=== PATIENT | male | born 1960 | race Caucasian/White ===

== ENCOUNTER 2019-12-30 10:32 | Day surgery (SDC) | payer BC, SELFPAY ==
[2019-12-24 14:24] VITALS: BMI 30.9
--- NOTE | 2019-12-26 15:56 | P.CONAN_ITS ---
Documented by User: Enedina Larsonney 12/26/19 15:57 HPI - Anesthesia Eval Consult details Narrative: 59yo M for Colonoscopy [facility] Past Medical History Medical History Allergic rhinitis Elevated cholesterol HTN (hypertension) Surgical History Surgical History Hx of arthroscopy of right knee Hx of colonoscopy Social History Social History Alcohol intake: current Alcohol intake frequency: a few times a week Alcohol type: beer Smoking Status: Never smoker Use of substances other than those prescribed or required for medical reasons: No Advance Directives: No Advance Directives Information Provided: No Advance Directives on File: No Meds Allergies Allergy/AdvReac Type Severity Reaction Status Date / Time No Known Allergies Allergy Verified 12/24/19 14:24 Home Medications Medication Instructions Recorded Confirmed Type amlodipine 10 mg PO DAILY 12/24/19 12/24/19 History atorvastatin 10 mg PO DAILY 12/24/19 12/24/19 History Exam Exam Date and Time: December 26, 2019 1556 Height,Weight and Vital Signs: Height 6 ft 1 in Weight 106.594 kg Assessment and Plan Assessment Anesthesia Assessment: Chart Reviewed Documented by User: Steve Castellanos MD 12/30/19 11:00 [facility] Past Medical History Medical History Allergic rhinitis Elevated cholesterol HTN (hypertension) Surgical History Surgical History Hx of arthroscopy of right knee Hx of colonoscopy Social History Social History Alcohol intake: current Alcohol intake frequency: a few times a week Alcohol type: beer Smoking Status: Never smoker Use of substances other than those prescribed or required for medical reasons: No Advance Directives: No Advance Directives Information Provided: No Advance Directives on File: No Meds Allergies Allergy/AdvReac Type Severity Reaction Status Date / Time No Known Allergies Allergy Verified 12/24/19 14:24 Home Medications Medication Instructions Recorded Confirmed Type amlodipine 10 mg PO DAILY 12/24/19 12/24/19 History atorvastatin 10 mg PO DAILY 12/24/19 12/24/19 History Exam Airway Mallampati Class: II TM Dist: >3cm Neck ROM: Full Loose/Missing/Broken Teeth: No Heart: rrr Lungs: nl Other: ao Assessment and Plan Assessment Anesthesia Assessment: Anesthesia Plan Discussed, PAT Visit and Chart Reviewed Final Anesthetic Review NPO: Yes ASA Class: II Final Preanesthetic Review: No Changes in Pt Med Stat, Meds/Allgs Chart Reviewed, Consent Obtained/Reviewed and Anes Risks/Benef Reviewed Patient Risk: Low Procedure Risk: Low Anesthetic Plan Anesthetic Plan: MAC: Disposition: Standard PACU
[2019-12-30 10:51] VITALS: BP 159/82; PULSE 58; RESP 16; TEMP 37.1; O2SAT 97
--- NOTE | 2019-12-30 10:57 | MHC.SHP ---
Pre-Procedural Eval Section B Chief Complaint: Screening Relevant Family History (Specify if Yes): No Relevant Social History: None Present Medications: see Short Stay Collaborative assessment Medical History: Significant History (high cholesterol, HTN) History of Previous Operations: Relevant previous surgery/procedure and date(s) (arthroscopy, colonoscopy) Allergies: Allergies Allergy/AdvReac Type Severity Reaction Status Date / Time No Known Allergies Allergy Verified 12/24/19 14:24 Review of Systems Sugical H&P ROS: Negative: Constitution, Cardiovascular, Respiratory, Neurological, Psychiatric, Hem-Onc, Allergic/Immunologic, Gastrointestinal, Genitourinary, Musculoskeletal, Integumentary, Endocrine and Eyes/Ears/Nose/Throat Exam Surgical H&P Exam: Normal: HEENT, Normal: Heart, Normal: Lungs, Normal: Extremities, Normal: Abdomen, Normal: Skin and Normal: Neurological Plan Diagnosis/Plan: Unchanged Patient has been examined and remains a candidate for the planned procedure
[2019-12-30] MEDS: Lactated Ringers 1,000 ML 100 ML IVCONT (11:05)
--- NOTE | 2019-12-30 11:38 | PM.OP ---
Brief Operative Note Date of Service: 12/30/19 Pre-op diagnosis: colon screen Post-op diagnosis: same Procedure: see op note Surgeon: Clay Martini MD Anesthesia: MAC Estimated blood loss (mL): 0 Condition: stable Disposition: PACU
--- NOTE | 2019-12-30 11:38 | W.PM.OPN ---
Operative Note Operative Note Date of Service: 12/30/19 Narrative: Operative Information Procedure Description: Colonoscopy COLONOSCOPY Instrument: Olympus variable stiffness pediatric scope 190L Colonoscopy Monitoring: Vital signs and clinical assessment, continuous EKG monitoring, Pulse oximetry, Carbon Dioxide monitoring and blood pressure monitoring were done throughout the procedure. Colon withdrawal time was 11 minutes. Procedure: The patient was placed in the left lateral decubitis position and pre-procedure medications were administered. After a digital rectal examination of the ano-rectum, the video colonoscope was inserted into the rectum and advanced through the colon to the cecum/TI. The colonoscope was slowly withdrawn in a retrograde panoramic fashion and the colon mucosa was carefully examined including a retroflexed view of the rectum. Findings and interventions are described below. Procedure Difficulty:easy Findings: Terminal Ileum-normal Cecum:normal Ascending Colon: normal Transverse Colon -normal Descending Colon:normal Sigmoid Colon: normal Rectum: Retroflexion with small internal hemorrhoids, grade I Anorectum - normal Colon preparation: [place] Bowel Preparation Scale Right colon; 3 Transverse colon: 3 Left colon; 3 (0 = Unprepared colon segment with mucosa not seen due to solid stool that cannot be cleared. 1 = Portion of mucosa of the colon segment seen, but other areas of the colon segment not well seen due to staining, residual stool and/or opaque liquid. 2 = Minor amount of residual staining, small fragments of stool and/or opaque liquid, but mucosa of colon segment seen well. 3 = Entire mucosa of colon segment seen well with no residual staining, small fragments of stool or opaque liquid) Impression and Post Procedure Diagnosis: internal hemorrhoids Plan: High fiber diet leaflet Avoid straining at stool, epsom salts and sitz bath prn, anusol supps or cream prn Repeat Colonoscopy in 10 years or earlier if clinically indicated Above findings were reviewed with the patient and relevant handouts were provided if indicated.
[2019-12-30 11:41] VITALS: BP 104/54; PULSE 49; RESP 16; TEMP 36.3; O2SAT 96
[2019-12-30 11:55] VITALS: BP 113/86; PULSE 59; RESP 18; O2SAT 97
[2019-12-30 12:11] VITALS: BP 146/85; PULSE 53; RESP 18; TEMP 36.8; O2SAT 98
--- NOTE | 2019-12-30 12:35 | HO.POSTANES ---
Post Anesthesia Evaluation Post Anesthesia Evaluation Vital Signs: Vital Signs Temp Pulse Resp BP Pulse Ox 12/30/19 12:11 98.2 F 53 18 146/85 H 98 12/30/19 11:55 59 18 113/86 97 12/30/19 11:41 97.4 F 49 L 16 104/54 L 96 12/30/19 10:51 98.7 F 58 16 159/82 H 97 Anesthesia: Monitored Mental Status: Awake Pain Control: Satisfactory Nausea/Vomiting: None Hydration: Adequate Anesthesia-Related Issues: No Anes. Related Issues
== END 2019-12-30 12:41 | disposition home or self-care (01) ==
PROVIDERS: PCP Internal Medicine; Visit Provider Internal Medicine Gastroenterology
PROC: 0DJD8ZZ Inspection of Lower Intestinal Tract, Via Natural or Artificial Opening Endoscopic (ICD-10-PCS; CPT 45378; principal; 2019-12-30 11:30)
DX: Z12.11 Encounter for screening for malignant neoplasm of colon (principal); K64.0 First degree hemorrhoids; I10 Essential (primary) hypertension; Z79.899 Other long term (current) drug therapy
CPT/HCPCS: 45378

== ENCOUNTER → 2020-01-14 08:46 | Outpatient (BNVA) | payer BC, SELFPAY | PROVIDERS: PCP Internal Medicine; Visit Provider Physician Assistant | DX: Z76.89 Persons encountering health services in other specified circumstances (principal) ==

== ENCOUNTER 2020-02-11 07:50 | Outpatient (REF) | payer BC, SELFPAY ==
--- NOTE | 2020-02-11 | US_ITS ---
EXAMINATION: US ABDOMEN COMPLETE CLINICAL INFORMATION: Unspecified abdominal pain. COMPARISON: None TECHNIQUE: Real-time imaging of the abdominal viscera. Technically difficult study secondary to bowel gas. FINDINGS: PANCREAS: Normal. ABDOMINAL AORTA: There are mildly calcified abdominal aortic saul. INFERIOR VENA CAVA: Visualized portions are normal. LIVER: The liver is normal in size and contour with increased echogenicity. There is a small cyst in the anterior right lobe measuring 0.7 x 0.3 x 0.6 cm. No additional cyst seen. There is no intrahepatic biliary duct dilatation seen. GALLBLADDER: Normal. The gallbladder is physiologically distended without evidence of stones, sludge, polyps, wall thickening, or pericholecystic fluid. COMMON BILE DUCT: Normal in caliber measuring 0.5 cm in diameter. RIGHT KIDNEY: There is mild lower pole caliectasis with an anechoic cyst lower pole measuring 1.5 x 1.1 x 1.2 cm. No hydronephrosis or renal calculi. The kidney measures 11.8 cm in maximum dimension. LEFT KIDNEY: There are multiple peripelvic renal cysts seen. The largest midpole cyst measures 1.9 x 3.4 x 1.9 cm. There is trace upper pole caliectasis. No hydronephrosis or renal calculi. The kidney measures 11.7 cm in maximum dimension. SPLEEN: Normal. The spleen measures 11.9 cm in maximum dimension. FREE FLUID: None. ADDITIONAL FINDING: Imaging through the left mid flank reveals no focal mass or abnormality. US/US abdomen complete IMPRESSION: Bilateral renal cysts with mild upper pole caliectasis left kidney and lower pole caliectasis right kidney. No echogenic stones seen. Mild hepatic steatosis with a tiny cyst anterior right lobe of liver. The rest of the abdominal ultrasound is unremarkable.
== END 2020-02-11 07:51 | disposition home or self-care (01) ==
LOC: HO.US 07:50
PROVIDERS: Visit Provider Internal Medicine
DX: R10.9 Unspecified abdominal pain (principal)
CPT/HCPCS: 76700

== ENCOUNTER 2021-01-22 08:30 | Outpatient (REF) | payer OTHER, SELFPAY ==
[2021-01-22 10:16] LABS: COVID-19 Test Negative (Negative)
== END 2021-01-22 08:31 | disposition home or self-care (01) ==
LOC: HO.LAB 08:30
PROVIDERS: Visit Provider Internal Medicine
DX: Z20.822 Contact with and (suspected) exposure to COVID-19 (principal)
CPT/HCPCS: 36415; 87635; C9803

== ENCOUNTER 2021-01-26 13:58 | Outpatient (REF) | payer OTHER, SELFPAY | END 2021-01-26 13:59 | disposition home or self-care (01) | LOC: HO.LAB 13:58 | PROVIDERS: Visit Provider Internal Medicine | DX: Z20.822 Contact with and (suspected) exposure to COVID-19 (principal) | CPT/HCPCS: C9803; U0003; U0005 ==